=== PATIENT | male | born 2000 | race African-American/Black ===

== ENCOUNTER 2024-06-30 07:19 | Emergency (ER) | payer OTHER ==
[~2024-06-30] VITALS: Ht 182.9 cm; Wt 85.6 kg
[2024-06-30] MEDS ORDERED: CETI-24 PO (10:53)
[2024-06-30] MEDS ORDERED: FLON1SPR NARES (10:53)
[2024-06-30 11:03] VITALS: BP 124/76; TEMP 97.6; O2SAT 100
== END 2024-06-30 11:04 | disposition home or self-care (01) ==
LOC: M ED 07:19
DX: J30.9 Allergic rhinitis, unspecified (principal); Z79.899 Other long term (current) drug therapy